=== PATIENT | male | born 1960 | race African-American/Black ===

== ENCOUNTER 2017-07-20 12:52 | Inpatient (IN) | payer OTHER ==
[2017-07-20] VITALS (17 sets, daily range): BP systolic 163–176; BP diastolic 88–100; PULSE 97–108; RESP 18–50; TEMP 97.3–98; O2SAT 92–100
[~2017-07-20] VITALS: Ht 170.2 cm; Wt 61.7 kg
[~2017-07-20 12:52] MED LIST: ASPI81TA82 PO; ATOR10TA PO; GLIP5TAB8 PO; GLUC10TA3 PO; GLUCOSE LANCETS T-DERMAL; LEVEMIR SQ; NORV10TA PO; glucometer; insulin syringes T-DERMAL
--- NOTE | 2017-07-20 14:13 | PD ---
HPI Chief Complaint: Respiratory Symptoms Time Seen by Provider: 13:29 Travel History International Travel<30 days: No Contact w/Intl Traveler<30days: No Traveled to known affect area: No History of Present Illness HPI 57yo M with PMH of HTN, DM, HLD sent here from [place] for further treatment. Pt has been feeling more sob for 3 days worst today. He has been having productive cough for 2 weeks as well as sharp midsternal chest pain for 2 weeks. He had an outpatient CXR today that showed bilateral pleural effusions and left upper multilobulated pneumonia. Pt is saturating at 88% on RA here. Pt does not use oxygen at home. Denies any vomiting, abdominal pain, focal weakness or numbness. PFSH Past Medical History Asthma: Yes COPD: Yes Diabetes: Yes Patient Takes Glucophage: No Diminished Hearing: No Hypertension: Yes Tetanus Vaccination: < 5 Years Influenza Vaccination: Yes Past Surgical History Other Surgery: Yes (COLONOSCOPY) Social History Alcohol Use: No Tobacco Use: No Substance Use: No Allergies-Medications (Allergen,Severity, Reaction): Coded Allergies: No Known Allergies (Unverified , 05/14/15) Reported Meds & Prescriptions Reported Meds & Active Scripts Active [insulin syringes] 1 Units T-DERMAL DAILY [glucose lancets] 1 Units T-DERMAL DAILY [glucometer] 1 Units Levemir Insulin (Insulin Detemir) 100 Units/Ml Inj 10 Units SQ HS Atorvastatin 10 mg (Atorvastatin Calcium) 10 Mg Tab 10 Mg PO DAILY Norvasc (Amlodipine Besylate) 10 Mg Tab 10 Mg PO DAILY Reported Aspir-81 (Aspirin) 81 Mg Tab 81 Mg PO DAILY Glipizide 10 Mg Tab 10 Mg PO DAILY Glipizide 5 Mg Tab 5 Mg PO DAILY@1600 GIVE 30 MINUTES PRIOR TO A MEAL Review of Systems Except as stated in HPI: all other systems reviewed are Neg Physical Exam Narrative GENERAL: 57yo M in moderate distress. SKIN: Focused skin assessment warm/dry. HEAD: Atraumatic. Normocephalic. EYES: Pupils equal and round. No scleral icterus. No injection or drainage. ENT: No nasal bleeding or discharge. Mucous membranes pink and moist. NECK: Trachea midline. CARDIOVASCULAR: Regular rate and rhythm. No murmur appreciated. RESPIRATORY: + accessory muscle use. Expiratory crackles left upper lung, bilateral lower lungs. Tachypneic RR 40. GASTROINTESTINAL: Abdomen soft, non-tender, nondistended. MUSCULOSKELETAL: No obvious deformities. No clubbing. No cyanosis. +Bilateral lower extremity edema. NEUROLOGICAL: Awake and alert. No obvious cranial nerve deficits. Motor grossly within normal limits. Normal speech. PSYCHIATRIC: Appropriate mood and affect; insight and judgment normal. Data Data Last Documented VS Vital Signs Date Time Temp Pulse Resp B/P (MAP) Pulse Ox O2 Delivery O2 Flow Rate FiO2 07/20/17 15:09 99 BiPAP 40 07/20/17 14:10 97 50 163/92 (115) 4.00 07/20/17 12:54 97.9 Orders Orders Complete Blood Count With Diff (07/20/17 13:41) Basic Metabolic Panel (Bmp) (07/20/17 13:41) Act Partial Throm Time (Ptt) (07/20/17 13:41) Prothrombin Time / Inr (Pt) (07/20/17 13:41) Troponin I (07/20/17 13:41) Blood Culture (07/20/17 13:41) Electrocardiogram (07/20/17 13:41) Chest, Single Ap (07/20/17 13:41) Lactic Acid Sepsis Protocol (07/20/17 13:41) B-Type Natriuretic Peptide (07/20/17 13:49) Ceftriaxone Inj (Rocephin Inj) (07/20/17 14:45) Azithromycin (Zithromax) (07/20/17 14:45) Resp Bipap / Cpap Non Invas Vt (07/20/17 ) Arterial Blood Gas (Abg) (07/20/17 ) Furosemide Inj (Lasix Inj) (07/20/17 15:45) Urinary Catheter Insert/Apply (07/20/17 15:35) Admit Order (Ed Use Only) (07/20/17 15:53) Labs Laboratory Tests Test 07/20/17 14:00 07/20/17 15:00 White Blood Count 9.6 TH/MM3 Red Blood Count 2.83 MIL/MM3 Hemoglobin 8.5 GM/DL Hematocrit 24.9 % Mean Corpuscular Volume 87.9 FL Mean Corpuscular Hemoglobin 29.9 PG Mean Corpuscular Hemoglobin Concent 34.1 % Red Cell Distribution Width 13.9 % Platelet Count 292 TH/MM3 Mean Platelet Volume 10.0 FL Neutrophils (%) (Auto) 80.4 % Lymphocytes (%) (Auto) 13.6 % Monocytes (%) (Auto) 3.8 % Eosinophils (%) (Auto) 1.6 % Basophils (%) (Auto) 0.6 % Neutrophils # (Auto) 7.7 TH/MM3 Lymphocytes # (Auto) 1.3 TH/MM3 Monocytes # (Auto) 0.4 TH/MM3 Eosinophils # (Auto) 0.2 TH/MM3 Basophils # (Auto) 0.1 TH/MM3 CBC Comment DIFF FINAL Differential Comment Prothrombin Time 10.4 SEC Prothromb Time International Ratio 1.0 RATIO Activated Partial Thromboplast Time 26.6 SEC Blood Urea Nitrogen 73 MG/DL Creatinine 10.83 MG/DL Random Glucose 146 MG/DL Calcium Level 9.3 MG/DL Sodium Level 141 MEQ/L Potassium Level 4.6 MEQ/L Chloride Level 109 MEQ/L Carbon Dioxide Level 20.7 MEQ/L Anion Gap 11 MEQ/L Estimat Glomerular Filtration Rate 6 ML/MIN Lactic Acid Level 0.9 mmol/L Troponin I 0.06 NG/ML B-Type Natriuretic Peptide 575 PG/ML Blood Gas Puncture Site LT RADIAL Blood Gas Patient Temperature 98.6 Blood Gas HCO3 18 mmol/L Blood Gas Base Excess -5.5 mmol/L Blood Gas Oxygen Saturation 91 % Arterial Blood pH 7.40 Arterial Blood Partial Pressure CO2 30 mmHg Arterial Blood Partial Pressure O2 64 mmHG Arterial Blood Oxygen Content 10.3 Vol % Arterial Blood Carboxyhemoglobin 2.2 % Arterial Blood Methemoglobin 0.5 % Blood Gas Hemoglobin 8.0 G/DL Oxygen Delivery Device NASAL CANNULA Blood Gas Liter Flow 3 L/M MDM Medical Decision Making Medical Screen Exam Complete: Yes Emergency Medical Condition: Yes Interpretation(s) EKG: NSR 95bpm. Normal axis. Differential Diagnosis CHF exacerbation vs. Pneumonia Narrative Course 57yo M with DM, CHF [facility] showed [place]. Pt is very tachypneic and initially hypoxic and saturating at 88% on RA. Pt does not use oxygen at home. Pt's O2 sat improved to 93% on 3L NC. Pt reevaluated at bedside and still feels sob so placed on BIPAP. Labs reviewed, no leukocytosis. H/H low at 8.5/24.9. H/H on 06/06/2017 was 8.6/25.4 [facility]. Creatinine elevated at 10.83. Pt has CKD stage 4 and creatinine on 06/06/17 was 9.3. Pt is still urinating and is not on dialysis yet. BNP elevated at 575. Pt takes furosemide 20mg PO and has not taken it today. Lasix 40mg IV ordered and mora ordered to monitor output. Troponin mildly elevated at 0.06 which is likely from CHF and CKD. Lactic acid 0.9. CXR showed left sided infiltrate concerning for pneumonia. Cardiomegaly with minimal bilateral effusion and diffuse interstitial prominence. Pt reevaluated at bedside and doing much better on BIPAP. Pt given cefriaxone and azithromycin for pneumonia. Pt has not been hospitalized in the last 3 months. Will admit for pulmonary edema and pneumonia. Discussed with Dr. Still and accepted to his service. Critical Care Narrative Aggregate critical care time was 40 minutes. Time to perform other separately billable procedures was not included in the critical care time. My time did not include minutes spent treating any other patients simultaneously or on activities that did not directly contribute to the patient's treatment. The services I provided to this patient were to treat and/or prevent clinically significant deterioration that could result in: cardiovascular collapse or . I provided critical care services requiring my management, as noted below: Chart data review, documentation time, medication orders and management, vital sign assessments/reviewing monitor data, ordering and reviewing lab tests, ordering and interpreting/reviewing x-rays and diagnostic studies, care of the patient and discussion of the patient with the admitting physicians. Diagnosis Primary Impression: Pulmonary edema Qualified Codes: J81.0 - Acute pulmonary edema Additional Impression: Pneumonia Qualified Codes: J18.1 - Lobar pneumonia, unspecified organism Admitting Information Admitting Physician Requests: Cassie Loving DO Jul 20, 2017 14:13
[2017-07-20 14:22] LABS: AUTOMATED NEUTROPHIL # 7.7 TH/MM3 (1.8-7.7); BASOPHIL # 0.1 TH/MM3 (0-0.2); BASOPHIL % 0.6 % (0.0-2.0); EOSINOPHIL # 0.2 TH/MM3 (0-0.4); EOSINOPHIL % 1.6 % (0.0-4.0); HEMATOCRIT 24.9 % (39.0-51.0); HEMOGLOBIN 8.5 GM/DL (13.0-17.0); LYMPH % 13.6 % (9.0-44.0); LYMPHOCYTE # 1.3 TH/MM3 (1.0-4.8); MEAN CELL VOLUME 87.9 FL (80.0-100.0); MEAN CORPUSCULAR HEMOGLOBIN 29.9 PG (27.0-34.0); MEAN CORPUSCULAR HGB CONC 34.1 % (32.0-36.0); MONO % 3.8 % (0.0-8.0); MONOCYTE # 0.4 TH/MM3 (0-0.9); NEUT % 80.4 % (16.0-70.0); PLATELET COUNT 292 TH/MM3 (150-450); RED BLOOD COUNT 2.83 MIL/MM3 (4.50-5.90); RED CELL DISTRIBUTION WIDTH 13.9 % (11.6-17.2); WHITE BLOOD COUNT 9.6 TH/MM3 (4.0-11.0)
[2017-07-20 14:25] LABS: PROTHROMBIN TIME - PATIENT 10.4 SEC (9.8-11.6)
--- NOTE | 2017-07-20 14:34 | RADRPT ---
EXAM DATE/TIME: 07/20/2017 14:03 [place] COMPARISON: No previous studies available for comparison. INDICATIONS : Shortness of breath, chest pain. MEDICAL HISTORY : Hypertension. Diabetes mellitus type II. SURGICAL HISTORY : None. ENCOUNTER: Initial ACUITY: 2 weeks PAIN SCORE: 6/10 LOCATION: Bilateral upper chest FINDINGS: The heart is enlarged. There are small bilateral effusions. There is mild diffuse interstitial promin ence. Of concern, there is patchy infiltrate in the left lung concerning for a pneumonia. The osseous structures are intact. CONCLUSION: 1. Left sided infiltrate concerning for pneumonia. 2. Cardiomegaly with minimal bilateral effusions and diffuse interstitial prominence. Underlying tena estive failure is not excluded. Calvin Mixon MD on July 20, 2017 at 14:31 Board Certified Radiologist. This report was verified electronically.
[2017-07-20 14:36] LABS: BICARBONATE 20.7 MEQ/L (21.0-32.0); CALCIUM 9.3 MG/DL (8.5-10.1)
[2017-07-20 14:40] LABS: TROPONIN I 0.06 NG/ML (0.02-0.05)
[2017-07-20] MEDS ORDERED: AZITHROMYCIN 250 MG TAB PO ONE (14:45)
[2017-07-20] MEDS ORDERED: cefTRIAXone INJ 1,000 MG in SODIUM CHLORIDE 0.9% INJ 100 ML IV ONE (14:45)
[2017-07-20 14:48] LABS: CREATININE 10.83 MG/DL (0.60-1.30)
[2017-07-20] MEDS ORDERED: FUROSEMIDE 40 MG/4 ML VIAL IV PUSH ONE (15:45)
[2017-07-20] MEDS ORDERED: SODIUM CHLORIDE 0.9% FLUSH 10 ML FLUSH IV FLUSH PRN (16:15)
[2017-07-20] MEDS ORDERED: ONDANSETRON HCL 4 MG/2 ML VIAL IVP PRN (16:15)
[2017-07-20] MEDS ORDERED: MAGNESIUM HYDROXIDE SUSP 30 ML CUP PO PRN (16:15)
[2017-07-20] MEDS ORDERED: BISACODYL 10 MG SUPP RECTAL PRN (16:15)
[2017-07-20] MEDS ORDERED: GLUCAGON 1 MG/ML VIAL OTHER PRN (16:15)
[2017-07-20] MEDS ORDERED: NALOXONE HCL 0.4 MG/ML AMP IV PUSH PRN (16:15)
[2017-07-20] MEDS ORDERED: ACETAMINOPHEN 325 MG TAB PO PRN (16:15)
[2017-07-20] MEDS ORDERED: DEXTROSE 50% IN WATER 50 ML VIAL(D50) IV PUSH PRN (16:15)
[2017-07-20] MEDS ORDERED: LACTULOSE SYRUP 20 GM/30 ML CUP PO PRN (16:15)
[2017-07-20] MEDS ORDERED: SENNOSIDES 8.6 MG TAB PO PRN (16:15)
--- NOTE | 2017-07-20 16:47 | HHI.HP ---
HPI Service [facility] Hospitalists Primary Care Physician [facility] Admission Diagnosis Pulmonary edema, pneumonia, acute on chronic kidney failure Diagnoses: Chief Complaint: Dyspnea Cough with sputum production Travel History International Travel<30 Days: No Contact w/Intl Traveler <30 Da: No Traveled to Known Affected Are: No Sepsis Criteria SIRS Criteria (2 or more): Heart rate over 90, RR > 20 or PaCO2 < 32 Sepsis Criteria (SIRS+source): Infect source susp/known Criteria Outcome: Meets sepsis criteria History of Present Illness This is a 57-year-old Clarisse male with past medical history significant for hypertension, insulin-dependent diabetes, dyslipidemia and chronic kidney disease stage V who presents to [facility] ED with complaints of progressive shortness of breath for the past 3 days. He was seen earlier at the [place] and sent over for treatment of multi lobar pneumonia. He reports productive cough for the past 2 weeks and has begun to produce greenish sputum. He reports associated chest heaviness. Patient is followed by etcher printed circuit boards at [facility] and has had recent discussions about the possibility of beginning dialysis. Patient states he still urinates well. Patient denies any change in medications. She denies any decreased urinary output. He denies any lower extremity swelling. Additionally, patient complains of mid epigastric pain that is chronic. He denies any nausea or vomiting. Per review of medical records from the [place], patient's had increasing creatinine over the past several months. Patient does not use oxygen at home. In the ED, chest x-ray was obtained which revealed left sided infiltrate concerning for pneumonia and cardiomegaly with minimal bilateral effusions and diffuse interstitial prominence. Underlying congestive failure is not excluded. His creatinine is extremely elevated at 10.83. BUN 73. Troponin elevated 0.06. BNP 575. Review of Systems Constitutional: COMPLAINS OF: Fatigue, Weight gain, DENIES: Diaphoretic episodes, Fever, Weight loss, Chills, Dizziness, Change in appetite, Night Sweats Endocrine: DENIES: Heat/cold intolerance, Polydipsia, Polyuria, Polyphagia Eyes: DENIES: Blurred vision, Diplopia, Eye inflammation, Eye pain, Vision loss Ears, nose, mouth, throat: DENIES: Tinnitus, Hearing loss, Vertigo, Nasal discharge, Running Nose, Epistaxis Respiratory: COMPLAINS OF: Cough, Shortness of breath, DENIES: Snoring, Wheezing, Hemoptysis Cardiovascular: COMPLAINS OF: Chest pain, Dyspnea on Exertion, DENIES: Palpitations, Syncope, PND, Lower Extremity Edema Gastrointestinal: DENIES: Abdominal pain, Black stools, Bloody stools, Constipation Musculoskeletal: DENIES: Joint pain, Muscle aches, Stiffness, Joint Swelling Integumentary: DENIES: Abnormal pigmentation, Nail changes, Pruritus, Rash Hematologic/lymphatic: DENIES: Bruising, Lymphadenopathy Immunologic/allergic: DENIES: Eczema, Urticaria Neurologic: DENIES: Abnormal gait, Headache, Localized weakness, Paresthesias, Seizures, Tremor Psychiatric: DENIES: Anxiety, Confusion, Mood changes, Depression, Hallucinations, Agitation, Suicidal Ideation, Delusions Except as stated in HPI: all other systems reviewed are Neg Past Family Social History Past Medical History Chronic kidney disease stage V not on dialysis Hypertension Insulin-dependent diabetes Dyslipidemia Past Surgical History Patient denies any previous surgical history Reported Medications [insulin syringes] 1 Units T-DERMAL DAILY [glucose lancets] 1 Units T-DERMAL DAILY [glucometer] 1 Units Levemir Insulin (Insulin Detemir) 100 Units/Ml Inj 10 Units SQ HS Atorvastatin 10 mg (Atorvastatin Calcium) 10 Mg Tab 10 Mg PO DAILY Norvasc (Amlodipine Besylate) 10 Mg Tab 10 Mg PO DAILY Aspir-81 (Aspirin) 81 Mg Tab 81 Mg PO DAILY Glipizide 10 Mg Tab 10 Mg PO DAILY Glipizide 5 Mg Tab 5 Mg PO DAILY@1600 GIVE 30 MINUTES PRIOR TO A MEAL Allergies: Coded Allergies: No Known Allergies (Unverified , 05/14/15) Active Ordered Medications Current Medications Medications (Trade) Dose Ordered Sig/Al Route Start Time Stop Time Status Last Admin (NS Flush) 2 ml UNSCH PRN IV FLUSH 07/20/17 16:15 (NS Flush) 2 ml BID IV FLUSH 07/20/17 21:00 (Tylenol) 650 mg Q4H PRN PO 07/20/17 16:15 (Zofran Inj) 4 mg Q6H PRN IVP 07/20/17 16:15 (Heparin Inj) 5,000 units BID SQ 07/20/17 21:00 (Narcan Inj) 0.4 mg UNSCH PRN IV PUSH 07/20/17 16:15 (Irene-Colace) 1 tab BID PO 07/20/17 21:00 (Milk Of Magnesia Liq) 30 ml Q12H PRN PO 07/20/17 16:15 (Senokot) 17.2 mg Q12H PRN PO 07/20/17 16:15 (Dulcolax Supp) 10 mg DAILY PRN RECTAL 07/20/17 16:15 (Lactulose Liq) 30 ml DAILY PRN PO 07/20/17 16:15 (D50w (Vial) Inj) 50 ml UNSCH PRN IV PUSH 07/20/17 16:15 (Glucagon Inj) 1 mg UNSCH PRN OTHER 07/20/17 16:15 (NovoLOG SUPPLEMENTAL SCALE) 1 ACHS SLIDING SCALE SQ 07/20/17 17:00 (Duoneb Neb) 1 ampule Q4HR WHILE AWAKE NEB NEB 07/20/17 20:00 Ceftriaxone Sodium 1000 mg/ Sodium Chloride 100 ml @ 200 mls/hr Q24H IV 07/21/17 17:00 (Zithromax) 500 mg DAILY PO 07/21/17 09:00 (Protonix) 40 mg DAILY PO 07/21/17 09:00 Family History Father, estranged Mother, , heat stroke Hypertension, diabetes Social History Patient denies any tobacco use, EtOH consumption or illicit drug use. Physical Exam Vital Signs Vital Signs Date Time Temp Pulse Resp B/P (MAP) Pulse Ox O2 Delivery O2 Flow Rate FiO2 07/20/17 15:09 99 BiPAP 40 07/20/17 15:07 100 40 07/20/17 14:10 97 50 163/92 (115) 95 Nasal Cannula 4.00 07/20/17 12:54 97.9 102 18 176/88 (117) 93 Room Air Physical Exam GENERAL: This is a well-nourished, well-developed male patient. Bipap on. at bedside. SKIN: No rashes, ecchymoses or lesions. Cool and dry. HEAD: Atraumatic. Normocephalic. No temporal or scalp tenderness. EYES: Pupils equal round and reactive. Extraocular motions intact. No scleral icterus. No injection or drainage. ENT: Nose without bleeding or purulent drainage. Throat without erythema, tonsillar hypertrophy or exudate. Uvula midline. Airway patent. NECK: Trachea midline. No lymphadenopathy. Supple, nontender, no meningeal signs. CARDIOVASCULAR: Tachycardiac with regular rhythm without murmurs, gallops, or rubs. RESPIRATORY: Decreased breath sounds bilaterally, rhonchi noted. GASTROINTESTINAL: Abdomen soft, non-tender, nondistended. No hepato-splenomegaly , or palpable masses. No guarding. MUSCULOSKELETAL: Extremities without clubbing, cyanosis, or edema. No joint tenderness, effusion, or edema noted. No calf tenderness. NEUROLOGICAL: Awake. Somewhat delayed in his responses. Able to move all extremities spontaneously. Motor and sensory grossly within normal limits. Five out of 5 muscle strength in all muscle groups. No focal neurologic finding. Normal speech. PSYCHIATRIC: Flat affect. Dysthymic mood. Questionable judgement and insight. Laboratory Laboratory Tests Test 07/20/17 14:00 07/20/17 15:00 White Blood Count 9.6 Red Blood Count 2.83 Hemoglobin 8.5 Hematocrit 24.9 Mean Corpuscular Volume 87.9 Mean Corpuscular Hemoglobin 29.9 Mean Corpuscular Hemoglobin Concent 34.1 Red Cell Distribution Width 13.9 Platelet Count 292 Mean Platelet Volume 10.0 Neutrophils (%) (Auto) 80.4 Lymphocytes (%) (Auto) 13.6 Monocytes (%) (Auto) 3.8 Eosinophils (%) (Auto) 1.6 Basophils (%) (Auto) 0.6 Neutrophils # (Auto) 7.7 Lymphocytes # (Auto) 1.3 Monocytes # (Auto) 0.4 Eosinophils # (Auto) 0.2 Basophils # (Auto) 0.1 CBC Comment DIFF FINAL Differential Comment Prothrombin Time 10.4 Prothromb Time International Ratio 1.0 Activated Partial Thromboplast Time 26.6 Blood Urea Nitrogen 73 Creatinine 10.83 Random Glucose 146 Calcium Level 9.3 Sodium Level 141 Potassium Level 4.6 Chloride Level 109 Carbon Dioxide Level 20.7 Anion Gap 11 Estimat Glomerular Filtration Rate 6 Lactic Acid Level 0.9 Troponin I 0.06 B-Type Natriuretic Peptide 575 Blood Gas Puncture Site LT RADIAL Blood Gas Patient Temperature 98.6 Blood Gas HCO3 18 Blood Gas Base Excess -5.5 Blood Gas Oxygen Saturation 91 Arterial Blood pH 7.40 Arterial Blood Partial Pressure CO2 30 Arterial Blood Partial Pressure O2 64 Arterial Blood Oxygen Content 10.3 Arterial Blood Carboxyhemoglobin 2.2 Arterial Blood Methemoglobin 0.5 Blood Gas Hemoglobin 8.0 Oxygen Delivery Device NASAL CANNULA Blood Gas Liter Flow 3 Date/Time Source Procedure Growth Status 07/20/17 14:00 Blood Peripheral Aerobic Blood Culture Pending Received 07/20/17 14:00 Blood Peripheral Anaerobic Blood Culture Pending Received Result Diagram: 07/20/17 1400 07/20/17 1400 Imaging Last Impressions Chest X-Ray 07/20/17 1341 Signed Impressions: Service Date/Time: Thursday, July 20, 2017 14:03 - CONCLUSION: 1. Left sided infiltrate concerning for pneumonia. 2. Cardiomegaly with minimal bilateral effusions and diffuse interstitial prominence. Underlying congestive failure is not excluded. MD Moon Herrera VTE Risk Assessment Moon VTE Risk Assessment: No/Low Risk (score <= 1) Caprini Risk Assessment Model Point Value = 1 Point Value = 2 Point Value = 3 Point Value = 5 Age 41-60 Minor surgery BMI > 25 kg/m2 Swollen legs Varicose veins or History of unexplained or recurrent spontaneous Oral contraceptives or hormone replacement Sepsis (< 1 month) Serious lung disease, including pneumonia (< 1 month) Abnormal pulmonary function Acute myocardial infarction Congestive heart failure (< 1 month) History of inflammatory bowel disease Medical patient at bed rest Age 61-74 Arthroscopic surgery Major open surgery (> 45 min) Laparoscopic surgery (> 45 min) Malignancy Confined to bed (> 72 hours) Immobilizing plaster cast Central venous access Age >= 75 History of VTE Family history of VTE Factor V Leiden Prothrombin [id number] Lupus anticoagulant Anticardiolipin antibodies Elevated serum homocysteine Heparin-induced thrombocytopenia Other congenital or acquired thrombophilia Stroke (< 1 month) Elective arthroplasty Hip, pelvis, or leg fracture Acute spinal cord injury (< 1 month) Prophylaxis Regimen Total Risk Factor Score Risk Level Prophylaxis Regimen 0-1 Low Early ambulation 2 Moderate Order ONE of the following: *Sequential Compression Device (SCD) *Heparin 5000 units SQ BID 3-4 Higher Order ONE of the following medications: *Heparin 5000 units SQ TID *Enoxaparin/Lovenox 40 mg SQ daily (WT < 150 kg, CrCl > 30 mL/min) *Enoxaparin/Lovenox 30 mg SQ daily (WT < 150 kg, CrCl > 10-29 mL/min) *Enoxaparin/Lovenox 30 mg SQ BID (WT < 150 kg, CrCl > 30 mL/min) AND/OR *Sequential Compression Device (SCD) 5 or more Highest Order ONE of the following medications: *Heparin 5000 units SQ TID (Preferred with Epidurals) *Enoxaparin/Lovenox 40 mg SQ daily (WT < 150 kg, CrCl > 30 mL/min) *Enoxaparin/Lovenox 30 mg SQ daily (WT < 150 kg, CrCl > 10-29 mL/min) *Enoxaparin/Lovenox 30 mg SQ BID (WT < 150 kg, CrCl > 30 mL/min) AND *Sequential Compression Device (SCD) Assessment and Plan Assessment and Plan 57-year-old Clarisse male with past medical history significant for hypertension, insulin-dependent diabetes, dyslipidemia and chronic kidney disease stage V not on dialysis who presents to [facility] ED with complaints of progressive shortness of breath for the past 3 days. Patient meets sepsis criteria with elevated heart rate, elevated respiratory rate and known source of pneumonia Acute hypoxic respiratory failure CXR reveals Left sided infiltrate concerning for pneumonia and cardiomegaly with minimal bilateral effusions and diffuse interstitial prominence. Underlying congestive failure is not excluded, images personally reviewed Patient given IV Rocephin and po azithromycin in the ED. Continue. Mucinex ER 600 mg by mouth twice a day DuoNeb scheduled Incentive spirometry, encourage hourly use Obtain sputum culture Oxygen to maintain respiratory status above 92%. Continue to monitor respiratory status. Continue Bipap. Chest pain, atypical suspect pleuritic Elevated troponin, likely due to renal failure Initial troponin 0.06. Continue to trend cardiac enzymes and EKGs. Continuous cardiac monitoring Suspected CHF, decompensated BNP 575, CXR revealing cardiomegaly with minimal bilateral effusions and diffuse interstitial prominence. Obtain 2-D echocardiogram Fluid/salt restricted diet Monitor respiratory status CKD, stage V, not on dialysis Patient has a creatinine of 10.83, GFR 6, BUN 73 Consult nephrology, appreciate assistance He follows with a etcher printed circuit boards in [facility] Avoid nephrotoxic agents, renally dose medications, avoid IVF Continue to monitor kidney function Hypertension Not well controlled Continue patient on home dose of antihypertensive once med rec completed Monitor BP and adjust treatment as indicated Insulin-dependent diabetes Obtain hemoglobin A1c patient on Levemir 10u sq hs at home. Blood sugar 133 at present. Begin with Levemir 5u. Accu-Cheks ISS Anemia Suspect secondary to chronic disease iron studies ordered No active bleeding Monitor Dyslipidemia Resume patient's home dose of statin therapy once med rec completed DVT prophylaxis Heparin sq The exam, history, and the medical decision-making described in the above note were completed with the assistance of the mid-level provider. I reviewed and agree with the findings presented. I attest that I had a [id number] encounter with the patient on the same day, and personally performed and documented my assessment and findings in the medical record. Code Status Full Code Discussed Condition With Dr. Still, patient, , ED physician Physician Certification 2 Midnight Certification Type: Admission for Inpatient Services Order for Inpatient Services The services are ordered in accordance with Medicare regulations or non- Medicare payer requirements, as applicable. In the case of services not specified as inpatient-only, they are appropriately provided as inpatient services in accordance with the 2-midnight benchmark. Estimated LOS (days): 3 3 days is the estimated time the patient will need to remain in the hospital, assuming treatment plan goals are met and no additional complications. Post-Hospital Plan: Not yet determined Kinza Pop Jul 20, 2017 16:47 Jimmie Still DO Jul 20, 2017 18:20
--- NOTE | 2017-07-20 16:56 | PD.CONS ---
HPI Service Nephrology Consult Requested By Reason for Consult CKD 5 not on dialysis Primary Care Physician [facility] History of Present Illness This is a 57yo male patient with PMH of HTN, DM, and HLD sent here [facility] for further treatment. He has been short of breath for 3 days. He follows Q6 weeks with a yarn man at the [facility]. His name is Dr. Morel. The plan was for HD but he has poor veins so the patient is telling me he is going to do home PD. He is on Bipap currently due to hypoxia. He was given Lasix in ER, a mora was placed, he still makes some urine. He is adamant about not starting dialysis admission, he "has a plan and would like to follow it". He is a full code. (Holli Mendez) Review of Systems Constitutional: COMPLAINS OF: Fatigue, DENIES: Weight gain Respiratory: COMPLAINS OF: Shortness of breath Cardiovascular: COMPLAINS OF: Chest pain, Lower Extremity Edema Gastrointestinal: DENIES: Abdominal pain (Holli Mendez) Past Family Social History Allergies: Coded Allergies: No Known Allergies (Unverified , 05/14/15) Past Medical History CKD 5, diabetic nephropathy per patient HTN DM II Hyperlipidemia Anemia Past Surgical History colonoscopy Reported Medications [insulin syringes] 1 Units T-DERMAL DAILY [glucose lancets] 1 Units T-DERMAL DAILY [glucometer] 1 Units Levemir Insulin (Insulin Detemir) 100 Units/Ml Inj 10 Units SQ HS Atorvastatin 10 mg (Atorvastatin Calcium) 10 Mg Tab 10 Mg PO DAILY Norvasc (Amlodipine Besylate) 10 Mg Tab 10 Mg PO DAILY Reported Aspir-81 (Aspirin) 81 Mg Tab 81 Mg PO DAILY Glipizide 10 Mg Tab 10 Mg PO DAILY Glipizide 5 Mg Tab 5 Mg PO DAILY@1600 GIVE 30 MINUTES PRIOR TO A MEAL Active Ordered Medications Current Medications Medications (Trade) Dose Ordered Sig/Al Route Start Time Stop Time Status Last Admin (NS Flush) 2 ml UNSCH PRN IV FLUSH 07/20/17 16:15 (NS Flush) 2 ml BID IV FLUSH 07/20/17 21:00 (Tylenol) 650 mg Q4H PRN PO 07/20/17 16:15 (Zofran Inj) 4 mg Q6H PRN IVP 07/20/17 16:15 (Heparin Inj) 5,000 units BID SQ 07/20/17 21:00 (Narcan Inj) 0.4 mg UNSCH PRN IV PUSH 07/20/17 16:15 (Irene-Colace) 1 tab BID PO 07/20/17 21:00 (Milk Of Magnesia Liq) 30 ml Q12H PRN PO 07/20/17 16:15 (Senokot) 17.2 mg Q12H PRN PO 07/20/17 16:15 (Dulcolax Supp) 10 mg DAILY PRN RECTAL 07/20/17 16:15 (Lactulose Liq) 30 ml DAILY PRN PO 07/20/17 16:15 (D50w (Vial) Inj) 50 ml UNSCH PRN IV PUSH 07/20/17 16:15 (Glucagon Inj) 1 mg UNSCH PRN OTHER 07/20/17 16:15 (NovoLOG SUPPLEMENTAL SCALE) 1 ACHS SLIDING SCALE SQ 07/20/17 17:00 (Duoneb Neb) 1 ampule Q4HR WHILE AWAKE NEB NEB 07/20/17 20:00 Ceftriaxone Sodium 1000 mg/ Sodium Chloride 100 ml @ 200 mls/hr Q24H IV 07/21/17 17:00 (Zithromax) 500 mg DAILY PO 07/21/17 09:00 (Protonix) 40 mg DAILY PO 07/21/17 09:00 Family History Non contributory Social History , lives with Employed Full code (Holli Mendez) Physical Exam Vital Signs Vital Signs Date Time Temp Pulse Resp B/P (MAP) Pulse Ox O2 Delivery O2 Flow Rate FiO2 07/20/17 16:44 98 40 175/98 (123) 98 CPAP 40 07/20/17 15:09 99 BiPAP 40 07/20/17 15:07 100 40 07/20/17 14:10 97 50 163/92 (115) 95 Nasal Cannula 4.00 07/20/17 12:54 97.9 102 18 176/88 (117) 93 Room Air Physical Exam Middle aged AAM, sitting up in bed, on Bipap scattered rales S1/S2, tachycardic 110s Abd round, non tender Ext: trace edema Skin: intact Laboratory Laboratory Tests Test 07/20/17 14:00 07/20/17 15:00 White Blood Count 9.6 Red Blood Count 2.83 Hemoglobin 8.5 Hematocrit 24.9 Mean Corpuscular Volume 87.9 Mean Corpuscular Hemoglobin 29.9 Mean Corpuscular Hemoglobin Concent 34.1 Red Cell Distribution Width 13.9 Platelet Count 292 Mean Platelet Volume 10.0 Neutrophils (%) (Auto) 80.4 Lymphocytes (%) (Auto) 13.6 Monocytes (%) (Auto) 3.8 Eosinophils (%) (Auto) 1.6 Basophils (%) (Auto) 0.6 Neutrophils # (Auto) 7.7 Lymphocytes # (Auto) 1.3 Monocytes # (Auto) 0.4 Eosinophils # (Auto) 0.2 Basophils # (Auto) 0.1 CBC Comment DIFF FINAL Differential Comment Prothrombin Time 10.4 Prothromb Time International Ratio 1.0 Activated Partial Thromboplast Time 26.6 Blood Urea Nitrogen 73 Creatinine 10.83 Random Glucose 146 Calcium Level 9.3 Sodium Level 141 Potassium Level 4.6 Chloride Level 109 Carbon Dioxide Level 20.7 Anion Gap 11 Estimat Glomerular Filtration Rate 6 Lactic Acid Level 0.9 Troponin I 0.06 B-Type Natriuretic Peptide 575 Blood Gas Puncture Site LT RADIAL Blood Gas Patient Temperature 98.6 Blood Gas HCO3 18 Blood Gas Base Excess -5.5 Blood Gas Oxygen Saturation 91 Arterial Blood pH 7.40 Arterial Blood Partial Pressure CO2 30 Arterial Blood Partial Pressure O2 64 Arterial Blood Oxygen Content 10.3 Arterial Blood Carboxyhemoglobin 2.2 Arterial Blood Methemoglobin 0.5 Blood Gas Hemoglobin 8.0 Oxygen Delivery Device NASAL CANNULA Blood Gas Liter Flow 3 Date/Time Source Procedure Growth Status 07/20/17 14:00 Blood Peripheral Aerobic Blood Culture Pending Received 07/20/17 14:00 Blood Peripheral Anaerobic Blood Culture Pending Received (Holli Mendez) Result Diagram: 07/20/17 1400 07/20/17 1400 Imaging Last 72 hours Impressions Chest X-Ray 07/20/17 1341 Signed Impressions: Service Date/Time: Thursday, July 20, 2017 14:03 - CONCLUSION: 1. Left sided infiltrate concerning for pneumonia. 2. Cardiomegaly with minimal bilateral effusions and diffuse interstitial prominence. Underlying congestive failure is not excluded. Calvin Mixon MD (Holli Mendez) Assessment and Plan Problem List: (1) CKD (chronic kidney disease) stage 5, GFR less than 15 ml/min ICD Codes: N18.5 - Chronic kidney disease, stage 5 Plan: CKD 5, would most likely benefit from dialysis however he would like to avoid it this hospitalization Currently on bipap, attempt to ween Avoid IVF in this patient, renally dose appropriate to renal status the plan is for PD; however if he decompensates this admission he will need a vascath and HD, patient and are aware Repeat labs in AM He has mild acidosis, monitor remove mora catheter, not required (2) HTN (hypertension) ICD Codes: I10 - Essential (primary) hypertension Plan: Resume home medications at admission (3) Anemia ICD Codes: D64.9 - Anemia, unspecified Plan: Check iron profile May have anemia of CKD (4) Diabetes mellitus ICD Codes: E11.9 - Type 2 diabetes mellitus without complications Status: Acute Plan: Insulin as needed, goal 140-180mg/dl (Holli Mendez) Assessment and Plan patient was seen and examined. Discussed the clinical situation with the patient and his . [facility] his GFR was 8. Patient presents with shortness of breath and dry cough. He is being treated for pneumonia. Currently on BIPAP. His GFR now is 6. Serum potassium is acceptable. I have indicated to the patient it is quite likely that he will need dialysis very soon, perhaps during this admission. Patient refused to start dialysis in this hospital, he [facility] and follow through with "plans". He intends to proceed with PD when his yarn man tells him to start dialysis. It appears that the patient's understands that dialysis may become necessary during this admission. Avoid nephrotoxins. Monitor urine output and renal function. We will follow. Dr. Witt is covering over the weekend. (Abelino Coronado MD) Holli Mendez Jul 20, 2017 16:56 Abelino Coronado MD Jul 20, 2017 22:56
[2017-07-20] MEDS: INSULIN ASPART SUPPLEMENTAL SCALE SQ SCH ×2 (17:00→20:54)
[2017-07-20] MEDS ORDERED: hydrALAZINE HCL 25 MG TAB PO ONE (18:15)
[2017-07-20 18:16] LABS: AMORPHOUS SEDIMENT, URINE RARE; BACTERIA, URINE OCC /hpf; BILIRUBIN, URINE NEG (NEG); BLOOD, URINE TRACE (NEG); GLUCOSE,URINE TRACE mg/dL (NEG); KETONE, URINE NEG (NEG); MUCUS URINE FEW /lpf (OCC); NITRITE,URINE NEG (NEG); URINE COLOR LIGHT-YELLOW (YELLW/STRAW); URINE LEUKOCYTE ESTERASE NEG (NEG)
[2017-07-20] MEDS: RESP: ALBUTEROL 2.5 MG/IPRATROPIUM 0.5 MG NEB (SCH) NEB (20:10)
[2017-07-20] MEDS: DOCUSATE SODIUM 50 MG/SENNA 8.6 MG TAB PO SCH (20:53)
[2017-07-20] MEDS: SODIUM CHLORIDE 0.9% FLUSH 10 ML FLUSH IV FLUSH SCH (20:53)
[2017-07-20] MEDS: HEPARIN SODIUM - SQ 10,000 UNITS/ML VIAL SQ SCH (20:54)
[2017-07-20] MEDS: INSULIN DETEMIR 100 UNITS/ML VIAL SQ SCH (20:54)
[2017-07-20 21:14] LABS: MAGNESIUM 2.2 MG/DL (1.5-2.5); PHOSPHORUS 4.4 MG/DL (2.5-4.9)
[2017-07-20 21:23] LABS: TROPONIN I 0.05 NG/ML (0.02-0.05)
[2017-07-21] VITALS (31 sets, daily range): BP systolic 121–162; BP diastolic 78–93; PULSE 56–114; RESP 20–28; TEMP 97.6–98.7; O2SAT 95–100
[2017-07-21 01:53] LABS: AUTOMATED NEUTROPHIL # 10.1 TH/MM3 (1.8-7.7); BASOPHIL # 0.1 TH/MM3 (0-0.2); BASOPHIL % 0.7 % (0.0-2.0); EOSINOPHIL # 0.1 TH/MM3 (0-0.4); EOSINOPHIL % 0.7 % (0.0-4.0); HEMATOCRIT 22.4 % (39.0-51.0); HEMOGLOBIN 7.6 GM/DL (13.0-17.0); LYMPH % 13.1 % (9.0-44.0); LYMPHOCYTE # 1.6 TH/MM3 (1.0-4.8); MEAN CELL VOLUME 86.9 FL (80.0-100.0); MEAN CORPUSCULAR HEMOGLOBIN 29.5 PG (27.0-34.0); MEAN CORPUSCULAR HGB CONC 33.9 % (32.0-36.0); MEAN PLATELET VOLUME 8.6 FL (7.0-11.0); MONO % 3.4 % (0.0-8.0); MONOCYTE # 0.4 TH/MM3 (0-0.9); NEUT % 82.1 % (16.0-70.0); PLATELET COUNT 311 TH/MM3 (150-450); RED BLOOD COUNT 2.58 MIL/MM3 (4.50-5.90); RED CELL DISTRIBUTION WIDTH 14.4 % (11.6-17.2); WHITE BLOOD COUNT 12.4 TH/MM3 (4.0-11.0)
[2017-07-21 02:22] LABS: ALBUMIN 3.2 GM/DL (3.4-5.0); ALT (GPT) 34 U/L (12-78); AST (GOT) 15 U/L (15-37); BICARBONATE 21.6 MEQ/L (21.0-32.0); BLOOD UREA NITROGEN 78 MG/DL (7-18); CALCIUM 8.9 MG/DL (8.5-10.1); CHLORIDE 109 MEQ/L (98-107); GLOMERULAR FILTRATION RATE 6 ML/MIN (>89); GLUCOSE,RANDOM 104 MG/DL (74-106); SODIUM (NA) 141 MEQ/L (136-145)
[2017-07-21 02:46] LABS: % SATURATION IRON PROFILE 5.8 % (20-50); ALKALINE PHOSPHATASE 95 U/L (45-117); FERRITIN 121 NG/ML (26-388); FOLATE 18.1 NG/ML (3.1-17.5); IRON (FE) 19 MCG/DL (65-175); TOTAL BILIRUBIN ADULT 0.3 MG/DL (0.2-1.0); TOTAL IRON BINDING CAPACITY 328 MCG/DL (250-450); TOTAL PROTEIN 7.5 GM/DL (6.4-8.2); TROPONIN I 0.06 NG/ML (0.02-0.05)
[2017-07-21] MEDS: INSULIN ASPART SUPPLEMENTAL SCALE SQ SCH ×4 (08:00→20:02)
[2017-07-21] MEDS: RESP: ALBUTEROL 2.5 MG/IPRATROPIUM 0.5 MG NEB (SCH) NEB ×4 (08:02→21:46)
[2017-07-21] MEDS: PANTOPRAZOLE SOD 40 MG DELAYED RELEASE TAB PO SCH (08:54)
[2017-07-21] MEDS: SODIUM CHLORIDE 0.9% FLUSH 10 ML FLUSH IV FLUSH SCH ×2 (08:54→21:00)
[2017-07-21] MEDS: DOCUSATE SODIUM 50 MG/SENNA 8.6 MG TAB PO SCH ×2 (08:54→19:59)
[2017-07-21] MEDS: AZITHROMYCIN 250 MG TAB PO SCH (08:55)
[2017-07-21] MEDS: HEPARIN SODIUM - SQ 10,000 UNITS/ML VIAL SQ SCH ×2 (08:56→20:00)
--- NOTE | 2017-07-21 12:28 | HHI.NPPN ---
Objective Data Data Vital Signs Date Time Temp Pulse Resp B/P (MAP) Pulse Ox O2 Delivery O2 Flow Rate FiO2 07/21/17 12:00 109 07/21/17 11:00 100 22 162/87 (112) 100 07/21/17 11:00 108 07/21/17 10:00 114 07/21/17 09:00 106 07/21/17 09:00 Nasal Cannula 4.00 98 07/21/17 08:05 100 Nasal Cannula 4.00 07/21/17 08:00 98.7 100 22 162/87 (112) 100 07/21/17 08:00 112 07/21/17 07:00 96 07/21/17 06:00 98 07/21/17 05:10 96 BiPAP 40 07/21/17 05:10 96 40 07/21/17 05:00 100 07/21/17 04:00 98 07/21/17 03:40 97 28 143/87 (105) 96 07/21/17 03:00 100 07/21/17 02:00 104 07/21/17 01:00 96 07/21/17 00:00 102 07/20/17 23:50 104 24 165/98 (120) 95 07/20/17 23:00 100 07/20/17 22:00 102 07/20/17 21:00 106 07/20/17 20:18 100 BiPAP 40 07/20/17 20:18 100 40 07/20/17 20:10 98.0 108 20 165/100 (121) 92 07/20/17 20:00 Bi-Pap 07/20/17 20:00 108 07/20/17 19:50 Nasal Cannula 2.00 07/20/17 19:00 104 07/20/17 18:45 92 Nasal Cannula 2.00 07/20/17 18:23 100 07/20/17 18:20 Bi-Pap 07/20/17 18:12 99 BiPAP 40 07/20/17 18:07 07/20/17 18:07 99 40 07/20/17 18:01 97.3 103 30 164/99 (120) 100 07/20/17 18:00 Bi-Pap 40 07/20/17 18:00 104 07/20/17 16:44 98 40 175/98 (123) 98 BiPAP 40 07/20/17 15:09 99 BiPAP 40 07/20/17 15:07 100 40 07/20/17 14:10 97 50 163/92 (115) 95 Nasal Cannula 4.00 07/20/17 12:54 97.9 102 18 176/88 (117) 93 Room Air -: 07/21/17 0146 07/21/17 0146 Microbiology 07/20/17 Aerobic Blood Culture - Preliminary, Resulted NO GROWTH IN 1 DAY 07/20/17 Anaerobic Blood Culture - Preliminary, Resulted NO GROWTH IN 1 DAY 07/20/17 Aerobic Blood Culture - Preliminary, Resulted NO GROWTH IN 1 DAY 07/20/17 Anaerobic Blood Culture - Preliminary, Resulted NO GROWTH IN 1 DAY 07/20/17 Urine Culture, Received Pending 07/20/17 Legionella Antigen - Final, Complete PRESUMPTIVE NEGATIVE FOR LEGIONELLA P... 07/20/17 Streptococcus pneumoniae Antigen (M - Final, Complete PRESUMPTIVE NEGATIVE FOR STREPTOCOCCU... Assessment/Plan Problem List: (1) CKD (chronic kidney disease) stage 5, GFR less than 15 ml/min ICD Codes: N18.5 - Chronic kidney disease, stage 5 Plan: CKD 5, would most likely benefit from dialysis however he would like to avoid it this hospitalization PD was discussed cr 11 he is going to follow with own MD Dr. Coronado to follow (2) HTN (hypertension) ICD Codes: I10 - Essential (primary) hypertension Plan: Resume home medications at admission (3) Anemia ICD Codes: D64.9 - Anemia, unspecified Plan: Check iron profile May have anemia of CKD (4) Diabetes mellitus ICD Codes: E11.9 - Type 2 diabetes mellitus without complications Status: Acute Plan: Insulin as needed, goal 140-180mg/dl Alma Witt MD Jul 21, 2017 12:28
--- NOTE | 2017-07-21 13:23 | EKG ---
Date Performed: 07/21/2017 Time Performed: 04:42:34 PTAGE: 57 years EKG: Marked baseline artifact makes leads V2 and V3 difficult to interpret Nonspecific T-wave ch arron Abnormal ECG PREVIOUS TRACING 07/20/2017 Since previous tracing, tactical difficulties still present with t racing. No gross changes are seen. DOCTOR: Lincoln Cullen Interpretating Date/Time 07/21/2017 13:21:55
--- NOTE | 2017-07-21 13:35 | EKG ---
Date Performed: 07/20/2017 Time Performed: 13:58:44 PTAGE: 57 years EKG: Sinus rhythm LEFT VENTRICULAR HYPERTROPHY AND ST-T CHANGE ABNORMAL ECG NO PREVIOUS TRACING DOCTOR: Lincoln Cullen Interpretating Date/Time 07/21/2017 13:34:52
--- NOTE | 2017-07-21 13:37 | EKG ---
Date Performed: 07/20/2017 Time Performed: 20:34:52 PTAGE: 57 years EKG: Technically poor tracing with leads V1 and V2 difficult to interpret. Somewhat prominent pr ecordial voltage Nonspecific T-wave change Compared to previous tracing, no gross changes are present . Abnormal ECG PREVIOUS TRACING : 07/20/2017 13.58 DOCTOR: Lincoln Cullen Interpretating Date/Time 07/21/2017 13:36:39
[2017-07-21] MEDS ORDERED: cefTRIAXone INJ 1,000 MG in SODIUM CHLORIDE 0.9% INJ 100 ML IV SCH (17:00)
--- NOTE | 2017-07-21 18:28 | ECHRPT ---
Indication: HEART FAILURE CONCLUSIONS The left ventricular systolic function is normal with an estimated ejection fraction in the range of 55-60%. Normal left ventricular size. Moderate concentric left ventricular hypertrophy. No regional wall motion abnormalities are present. The left ventricular systolic function is normal with an estimated ejection fraction in the range of 50-55%. Gobo-pz-aqogcttd mitral valve regurgitation. Aortic valve sclerosis is present. Eikj-ol-bmpisggz aortic valve regurgitation. There is mild tricuspid valve regurgitation. There is estimated moderate pulmonary hypertension present (range 50-60 mmHg). Mild pulmonary valve regurgitation. There is a small pericardial effusion present. BP: 143 / 87 HR: 98 Rhythm: Sinus MEASUREMENTS (Male / Female) Normal Values Technical Quality:Excellent 2D ECHO LV Diastolic Diameter PLAX 3.9 cm 4.2 - 5.9 / 3.9 - 5.3 cm LV Systolic Diameter PLAX 3.6 cm IVS Diastolic Thickness 1.6 cm 0.6 - 1.0 / 0.6 - 0.9 cm LVPW Diastolic Thickness 1.4 cm 0.6 - 1.0 / 0.6 - 0.9 cm LV Relative Wall Thickness 0.8 RV Internal Dim ED PLAX 2.6 cm LVOT Diameter 1.8 cm LA Systolic Diameter LX 3.3 cm 3.0 - 4.0 / 2.7 - 3.8 cm LV Ejection Fraction MOD 4C 59.4 % LV Cardiac Index MOD 4C 4185.6 cm/minm LV Ejection Fraction 4C AL 61.1 % LV Cardiac Index 4C AL 4514.1 cm/minm M-MODE Aortic Root Diameter MM 2.8 cm LA Systolic Diameter MM 3.6 cm LA Ao Ratio MM 1.3 AV Cusp Separation MM 1.5 cm DOPPLER AV Peak Velocity 174.0 cm/s AV Peak Gradient 12.1 mmHg AI Peak Velocity 387.0 cm/s AI Peak Gradient 59.9 mmHg AI Pressure Half Time 335.0 ms LVOT Peak Velocity 109.0 cm/s LVOT Peak Gradient 4.8 mmHg AV Area Cont Eq pk 1.6 cm MV Area PHT 7.6 cm TR Peak Velocity 364.0 cm/s TR Peak Gradient 53.0 mmHg Right Atrial Pressure 10.0 mmHg Pulmonary Artery Systolic Pressu 63.0 mmHg Right Ventricular Systolic Press 63.0 mmHg PV Peak Velocity 105.0 cm/s PV Peak Gradient 4.4 mmHg FINDINGS LEFT VENTRICLE The left ventricular systolic function is normal with an estimated ejection fraction in the range of 55-60%. Normal left ventricular size. Moderate concentric left ventricular hypertrophy. No regional wall motion abnormalities are present. RIGHT VENTRICLE Normal right ventricular size and systolic function. LEFT ATRIUM The left atrial size is normal. RIGHT ATRIUM The right atrial size is normal. ATRIAL SEPTUM Normal atrial septal thickness without atrial level shunting by limited color doppler interrogation. AORTA The aortic root and proximal ascending aorta are normal in size on limited imaging. MITRAL VALVE Structurally normal mitral valve. Jgjb-ju-ulrjfefu mitral valve regurgitation. AORTIC VALVE Trileaflet aortic valve. Aortic valve sclerosis is present. Rdok-cl-fajlxncy aortic valve regurgitation. TRICUSPID VALVE Structurally normal tricuspid valve. There is mild tricuspid valve regurgitation. There is estimated moderate pulmonary hypertension present (range 50-60 mmHg). PULMONARY VALVE Mild pulmonary valve regurgitation. VESSELS The inferior vena cava is normal in size. PERICARDIUM There is a small pericardial effusion present. Yong North MD, FACC, FSCAI (Electronically Signed) Final Date:21 July 2017 18:27
--- NOTE | 2017-07-21 18:34 | HHI.PR ---
Subjective Remarks Pt was admitted overnight with PNA and says he feels he may be ready for home. But when he removed his oxygen his saturations went to mid-90's while his HR elevated to 112. I explained that phenomenon and he agreed to stay. Objective Vitals Vital Signs Date Time Temp Pulse Resp B/P (MAP) Pulse Ox O2 Delivery O2 Flow Rate FiO2 07/21/17 16:00 98 07/21/17 15:30 110 22 158/93 (114) 95 07/21/17 15:00 110 07/21/17 14:00 100 07/21/17 13:00 110 07/21/17 12:00 109 07/21/17 11:00 100 22 162/87 (112) 100 07/21/17 11:00 108 07/21/17 10:00 114 07/21/17 09:00 106 07/21/17 09:00 Nasal Cannula 4.00 98 07/21/17 08:05 100 Nasal Cannula 4.00 07/21/17 08:00 98.7 100 22 162/87 (112) 100 07/21/17 08:00 112 07/21/17 07:00 96 07/21/17 06:00 98 07/21/17 05:10 96 BiPAP 40 07/21/17 05:10 96 40 07/21/17 05:00 100 07/21/17 04:00 98 07/21/17 03:40 97 28 143/87 (105) 96 07/21/17 03:00 100 07/21/17 02:00 104 07/21/17 01:00 96 07/21/17 00:00 102 07/20/17 23:50 104 24 165/98 (120) 95 07/20/17 23:00 100 07/20/17 22:00 102 07/20/17 21:00 106 07/20/17 20:18 100 BiPAP 40 07/20/17 20:18 100 40 07/20/17 20:10 98.0 108 20 165/100 (121) 92 07/20/17 20:00 Bi-Pap 07/20/17 20:00 108 07/20/17 19:50 Nasal Cannula 2.00 07/20/17 19:00 104 07/20/17 18:45 92 Nasal Cannula 2.00 I/O 107/20/17 07/20/17 07/21/17 07/21/17 07/21/17 07:00 15:00 23:00 07:00 15:00 23:00 Intake Total 100 ml 300 ml Output Total 700 ml Balance 100 ml -400 ml Intake Oral 300 ml IV Total 100 ml Output Urine Total 700 ml Result Diagram: 07/21/17 0146 07/21/17 0146 Objective Remarks GENERAL: Well-nourished, well-developed patient. SKIN: Warm and dry. HEAD: Normocephalic. EYES: No scleral icterus. No injection or drainage. NECK: Supple, trachea midline. No JVD or lymphadenopathy. CARDIOVASCULAR: Regular rate and rhythm without murmurs, gallops, or rubs. RESPIRATORY: Crackles in bases L>R, no wheezing. No accessory muscle use. GASTROINTESTINAL: Abdomen soft, non-tender, nondistended. MUSCULOSKELETAL: No cyanosis, or edema. BACK: Nontender without obvious deformity. No CVA tenderness. EXTREMITIES: trace edema A/P Problem List: (1) Pneumonia ICD Code: J18.9 - Pneumonia, unspecified organism Status: Acute (2) CKD (chronic kidney disease) stage 5, GFR less than 15 ml/min ICD Code: N18.5 - Chronic kidney disease, stage 5 (3) Diabetes mellitus ICD Code: E11.9 - Type 2 diabetes mellitus without complications Status: Acute (4) Pulmonary edema ICD Code: J81.1 - Chronic pulmonary edema Status: Acute Assessment and Plan Multi-lobar Pneumonia Remaining afebrile, but still showing signs of stress off of oxygen Continue Rocephin/Azithromycin IV Test periodically off of oxygen Stage 5 Renal Failure Planning to start peritoneal dialysis as soon as next week He says he makes adequate urine output, subjectively Valenzuela catheter removed this morning, will monitor output Type 2 Diabetes Medium SSI coverage with acuchecks Diet switched to diabetic renal DVT Prophylaxis SCD Hose and ambulation Problem Qualifiers (1) Pneumonia: Qualified Codes: J18.1 - Lobar pneumonia, unspecified organism (2) Pulmonary edema: Qualified Codes: J81.0 - Acute pulmonary edema Salty Prieto MD Jul 21, 2017 18:34
[2017-07-21] MEDS: INSULIN DETEMIR 100 UNITS/ML VIAL SQ SCH (20:02)
[2017-07-22] VITALS (16 sets, daily range): BP systolic 146–153; BP diastolic 85–94; PULSE 95–110; RESP 18–20; TEMP 98.1–99.5; O2SAT 94–99
[2017-07-22] MEDS: INSULIN ASPART SUPPLEMENTAL SCALE SQ SCH ×2 (08:00→12:52)
[2017-07-22] MEDS: PANTOPRAZOLE SOD 40 MG DELAYED RELEASE TAB PO SCH (08:36)
[2017-07-22] MEDS: SODIUM CHLORIDE 0.9% FLUSH 10 ML FLUSH IV FLUSH SCH (08:36)
[2017-07-22] MEDS: HEPARIN SODIUM - SQ 10,000 UNITS/ML VIAL SQ SCH (08:37)
[2017-07-22] MEDS: AZITHROMYCIN 250 MG TAB PO SCH (08:37)
[2017-07-22] MEDS: DOCUSATE SODIUM 50 MG/SENNA 8.6 MG TAB PO SCH (08:40)
[2017-07-22] MEDS: RESP: ALBUTEROL 2.5 MG/IPRATROPIUM 0.5 MG NEB (SCH) NEB ×2 (09:05→12:18)
[2017-07-22] MEDS ORDERED: AZIT500T2 PO (12:10)
[2017-07-22] MEDS ORDERED: CEPH-460 PO (12:10)
[2017-07-22] MEDS ORDERED: NEBULIZER1 MI1 (12:10)
[2017-07-22] MEDS ORDERED: Albuterol-Ipratropium Neb NEB (12:10)
--- NOTE | 2017-07-22 12:14 | HHI.DS ---
Discharge Summary Admission Date Jul 20, 2017 at 15:55 Discharge Date: Jul 22, 2017 Admitting Diagnosis Pulmonary edema, pneumonia, acute on chronic kidney failure (1) Pneumonia ICD Code: J18.9 - Pneumonia, unspecified organism Status: Acute (2) CKD (chronic kidney disease) stage 5, GFR less than 15 ml/min ICD Code: N18.5 - Chronic kidney disease, stage 5 (3) Diabetes mellitus ICD Code: E11.9 - Type 2 diabetes mellitus without complications Status: Acute (4) Pulmonary edema ICD Code: J81.1 - Chronic pulmonary edema Status: Acute Procedures none Brief History - From Admission This is a 57-year-old Clarisse male with past medical history significant for hypertension, insulin-dependent diabetes, dyslipidemia and chronic kidney disease stage V who presents to [facility] ED with complaints of progressive shortness of breath for the past 3 days. He was seen earlier at the [facility] and sent over for treatment of multi lobar pneumonia. He reports productive cough for the past 2 weeks and has begun to produce greenish sputum. He reports associated chest heaviness. Patient is followed by meterman at [facility] and has had recent discussions about the possibility of beginning dialysis. Patient states he still urinates well. Patient denies any change in medications. She denies any decreased urinary output. He denies any lower extremity swelling. Additionally, patient complains of mid epigastric pain that is chronic. He denies any nausea or vomiting. Per review of medical records from the [facility], patient's had increasing creatinine over the past several months. Patient does not use oxygen at home. In the ED, chest x-ray was obtained which revealed left sided infiltrate concerning for pneumonia and cardiomegaly with minimal bilateral effusions and diffuse interstitial prominence. Underlying congestive failure is not excluded. His creatinine is extremely elevated at 10.83. BUN 73. Troponin elevated 0.06. BNP 575. CBC/BMP: 07/21/17 0146 07/21/17 0146 Significant Findings Laboratory Tests Test 07/20/17 14:00 07/20/17 15:00 07/20/17 17:30 07/20/17 20:02 Red Blood Count 2.83 MIL/MM3 (4.50-5.90) Hemoglobin 8.5 GM/DL (13.0-17.0) Hematocrit 24.9 % (39.0-51.0) Neutrophils (%) (Auto) 80.4 % (16.0-70.0) Blood Urea Nitrogen 73 MG/DL (7-18) Creatinine 10.83 MG/DL (0.60-1.30) Random Glucose 146 MG/DL (74-106) Chloride Level 109 MEQ/L (98-107) Carbon Dioxide Level 20.7 MEQ/L (21.0-32.0) Estimat Glomerular Filtration Rate 6 ML/MIN (>89) Troponin I 0.06 NG/ML (0.02-0.05) B-Type Natriuretic Peptide 575 PG/ML (0-100) Blood Gas HCO3 18 mmol/L (22-26) Blood Gas Base Excess -5.5 mmol/L (-2-2) Arterial Blood Partial Pressure CO2 30 mmHg (38-42) Arterial Blood Oxygen Content 10.3 Vol % (12.0-20.0) Blood Gas Hemoglobin 8.0 G/DL (12.0-16.0) Urine Protein 100 mg/dL (NEG-TRACE) Urine Occult Blood TRACE (NEG) Urine Bacteria OCC /hpf (NONE) Urine Mucus FEW /lpf (OCC) Test 07/21/17 01:46 White Blood Count 12.4 TH/MM3 (4.0-11.0) Red Blood Count 2.58 MIL/MM3 (4.50-5.90) Hemoglobin 7.6 GM/DL (13.0-17.0) Hematocrit 22.4 % (39.0-51.0) Neutrophils (%) (Auto) 82.1 % (16.0-70.0) Neutrophils # (Auto) 10.1 TH/MM3 (1.8-7.7) Blood Urea Nitrogen 78 MG/DL (7-18) Creatinine 11.00 MG/DL (0.60-1.30) Albumin 3.2 GM/DL (3.4-5.0) Chloride Level 109 MEQ/L (98-107) Estimat Glomerular Filtration Rate 6 ML/MIN (>89) Iron Level 19 MCG/DL (65-175) Percent Iron Saturation 5.8 % (20-50) Troponin I 0.06 NG/ML (0.02-0.05) Vitamin B12 Level 1001 PG/ML (193-986) Folate 18.1 NG/ML (3.1-17.5) PE at Discharge GENERAL: Well-nourished, well-developed patient. SKIN: Warm and dry. HEAD: Normocephalic. EYES: No scleral icterus. No injection or drainage. NECK: Supple, trachea midline. No JVD or lymphadenopathy. CARDIOVASCULAR: Regular rate and rhythm without murmurs, gallops, or rubs. RESPIRATORY: Crackles in bases L>R, no wheezing. No accessory muscle use. GASTROINTESTINAL: Abdomen soft, non-tender, nondistended. MUSCULOSKELETAL: No cyanosis, or edema. BACK: Nontender without obvious deformity. No CVA tenderness. EXTREMITIES: trace edema Hospital Course 57M with h/o stage 5 renal insufficiency presented to the ER two days ago with pulmonary edema and pneumonia. He has responded favorably to treatments and since yesterday has been requesting to go home. 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 So though his heart rate remains around 100, he is saturating at 98% at rest and lives with a medical professional. He is safe therefore to recover at home. I've encouraged him to return if any problems arise. Pt Condition on Discharge: Fair Discharge Disposition: Discharge Home Discharge Time: <= 30 minutes Discharge Instructions DIET: Follow Instructions for: As Tolerated, No Restrictions Activities you can perform: Regular-No Restrictions Salty Prieto MD Jul 22, 2017 12:14
--- NOTE | 2017-07-22 13:25 | HHI.NPPN ---
Objective Data Data Vital Signs Date Time Temp Pulse Resp B/P (MAP) Pulse Ox O2 Delivery O2 Flow Rate FiO2 07/22/17 12:00 98.1 103 20 152/94 (113) 96 07/22/17 12:00 100 07/22/17 11:00 98 07/22/17 10:00 100 07/22/17 09:07 98 21 07/22/17 09:00 103 07/22/17 08:00 103 07/22/17 07:24 98.8 105 18 153/90 (111) 99 07/22/17 07:00 100 07/22/17 06:00 103 07/22/17 05:00 105 07/22/17 04:00 101 07/22/17 04:00 Nasal Cannula 2.00 07/22/17 03:50 99.5 103 20 146/85 (105) 94 07/22/17 03:00 98 07/22/17 02:00 102 07/22/17 01:00 102 07/22/17 00:00 110 07/21/17 23:47 97.9 108 20 157/92 (113) 96 07/21/17 23:30 Nasal Cannula 2.00 07/21/17 23:00 100 07/21/17 22:00 106 07/21/17 21:49 97 Nasal Cannula 2.00 07/21/17 21:00 106 07/21/17 20:00 110 07/21/17 19:15 Room Air 07/21/17 19:15 97.6 109 20 151/89 (109) 97 07/21/17 19:00 106 07/21/17 18:00 88 07/21/17 17:00 98 07/21/17 16:00 98 07/21/17 16:00 100 Room Air 07/21/17 15:30 110 22 158/93 (114) 95 07/21/17 15:00 110 07/21/17 14:00 100 -: 07/21/17 0146 07/21/17 0146 Assessment/Plan Problem List: (1) CKD (chronic kidney disease) stage 5, GFR less than 15 ml/min ICD Codes: N18.5 - Chronic kidney disease, stage 5 Plan: CKD 5, would most likely benefit from dialysis however he would like to avoid it this hospitalization PD was discussed advance Kidney failure discussed he would like to follow with own [employer] he is aware his creatinine is 11 (2) HTN (hypertension) ICD Codes: I10 - Essential (primary) hypertension Plan: Resume home medications at admission (3) Anemia ICD Codes: D64.9 - Anemia, unspecified Plan: Check iron profile May have anemia of CKD (4) Diabetes mellitus ICD Codes: E11.9 - Type 2 diabetes mellitus without complications Status: Acute Plan: Insulin as needed, goal 140-180mg/dl Alma Witt MD Jul 22, 2017 13:25
[2017-07-24 13:46] LABS: MYCOPLASMA PNEUMONIAE IGG Positive (Negative); MYCOPLASMA PNEUMONIAE IGM Negative (Negative)
== END 2017-07-22 14:11 | disposition home or self-care (01) | DRG 193 ==
LOC: NEPC 12:52 → NEDA 15:55 → HCIS 17:56
PROVIDERS: ADMIT Family Medicine; ATTEND Family Medicine
PROC: 5A09357 Assistance with Respiratory Ventilation, Less than 24 Consecutive Hours, Continuous Positive Airway Pressure (ICD-10-PCS; principal; 2017-07-20)
DX: J18.9 Pneumonia, unspecified organism (principal); J96.01 Acute respiratory failure with hypoxia; I13.2 Hypertensive heart and chronic kidney disease with heart failure and with stage 5 chronic kidney disease, or end stage renal disease; N17.9 Acute kidney failure, unspecified; N18.5 Chronic kidney disease, stage 5; E87.2 Acidosis; J44.0 Chronic obstructive pulmonary disease with (acute) lower respiratory infection; E11.22 Type 2 diabetes mellitus with diabetic chronic kidney disease; I50.9 Heart failure, unspecified; E78.5 Hyperlipidemia, unspecified; D63.8 Anemia in other chronic diseases classified elsewhere; G89.29 Other chronic pain; R10.13 Epigastric pain; Z79.4 Long term (current) use of insulin
CPT/HCPCS: 36600; 71045; 80048; 80053; 81001; 82607; 82728; 82746; 82805; 82948; 83036; 83540; 83550; 83605; 83735; 83880; 84100; 84443; 84484; 85025; 85610; 85730; 86738; 87040; 87086; 87449; 93005; 93306; 94002; 94003; 94150; 94640; 94664; 96365; J0696; J1644; J1815; J1940